=== PATIENT | female | born 2000 | race African-American/Black ===

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

== ENCOUNTER 2019-07-13 17:26 | Emergency (ER) | payer SELFPAY ==
--- NOTE | 2019-07-13 17:34 | PDOC ---
Rapid Medical Evaluation Time Seen by Provider: 07/13/19 17:32 Medical Evaluation: Allergies Allergy/AdvReac Type Severity Reaction Status Date / Time No Known Allergies Allergy Verified 10/28/16 10:31 07/13/19 17:33 pt c/o: lower abd pain radiating to back, + nausea, mild dysuria, hx pcos, denies similar pain from pcos Pt on brief exam: no cva tenderness, vss, no ruq tenderness Pt ordered for: labs urine Pt to proceed to the ED Discharge Disposition - Diagnosis UTI (urinary tract infection), Abdominal pain, Constipation - Discharge Dispostion Disposition: HOME Condition at time of disposition: Stable - Prescriptions Prescriptions: Nitrofurantoin Monohyd/M-Cryst [Macrobid -] 100 mg PO BID #14 capsule Phenazopyridine HCl [Pyridium -] 100 mg PO PC #6 tablet Polyethylene Glycol 3350 [Miralax (For Daily Use) -] 17 gm PO DAILY #1 bottle - Referrals Referrals: Sammi Andersen MD [Primary Care Provider] - - Patient Instructions Printed Discharge Instructions: Increased Dietary Fiber May Improve Constipation Conditions With Pelvic Bjorn, DI for Urinary Tract Infection (UTI), DI for Constipation Additional Instructions: Your CAT scan shows no acute pathology. Your urine shows bacteria in the urine which could be the cause of your pain. Take prescribed medication as prescribed and finish prescribed antibiotics. Increase fluid intake. Follow- up with your primary care - Post Discharge Activity
[2019-07-13 17:35] VITALS: TEMP 99.5; BMI 34.9
[2019-07-13 18:25] LABS: BASO % 0.4 % (0-2.0); EOS % 1.7 % (0-4.5); HEMATOCRIT 42.3 % (32.4-45.2); LYMPH % 26.2 % (8-40); MCH 28.3 pg (25.7-33.7); MCHC 33.2 g/dl (32.0-36.0); MEAN CELL VOLUME 85.3 fl (80-96); MEAN PLT VOLUME 8.3 fl (7.5-11.1); MONO % 17.4 % (3.8-10.2); NEUT % 54.3 % (42.8-82.8); PLATELET COUNT 294 K/MM3 (134-434); RBC 4.96 M/mm3 (3.60-5.2); RDW 14.1 % (11.6-15.6); WHITE BLOOD COUNT 6.8 K/mm3 (4.0-10.0)
[2019-07-13 19:01] LABS: ALBUMIN 3.6 g/dl (3.4-5.0); BILIRUBIN,TOTAL 0.3 mg/dL (0.2-1); BLOOD UREA NITROGEN 8.6 mg/dL (7-18); CALCIUM 8.7 mg/dL (8.5-10.1); CREATININE 0.8 mg/dL (0.55-1.3); POTASSIUM 3.9 mmol/L (3.5-5.1)
[2019-07-13 20:34] LABS: EPI CELLS 0.8 /HPF (0-5/HPF); HYALINE CASTS 6 /lpf (0-8); PH,URINE 5.5 (5.0-8.0); URINE APPEARANCE CLOUDY; URINE BILIRUBIN NEGATIVE (NEGATIVE); URINE COLOR YELLOW; URINE GLUCOSE (UA) NEGATIVE (NEGATIVE); URINE KETONE NEGATIVE (NEGATIVE); URINE LEUK ESTERASE 2+ (NEGATIVE); URINE NITRITE NEGATIVE (NEGATIVE); URINE PROTEIN NEGATIVE (NEGATIVE); URINE RBC 2 /hpf (0-4); URINE UROBILINOGEN 0.2 mg/dL (0.2-1.0); URINE WBC 62 /hpf (0-5)
--- NOTE | 2019-07-13 20:49 | PDOC ---
History of Present Illness - General Chief Complaint: Pain Stated Complaint: LOWER R SIDE ABDOMINAL PAIN Time Seen by Provider: 07/13/19 17:32 History Source: Patient Exam Limitations: Clinical Condition - History of Present Illness Initial Comments: 07/13/19 20:45 Patient with no significant past medical history present with complaint of 2 days history of right flank and lower abdominal pain radiating to the back. Patient also reported mild dysuria but denies burning with urination, urinary frequency. Denies nausea, vomiting, fever, chills, diarrhea. She reported has not had a bowel movement in 2 days. Patient did not take anything for symptoms Is this a multiple visit Asthma Patient?: No Timing/Duration: other (2 days) Past History - Past Medical History Allergies/Adverse Reactions: Allergies Allergy/AdvReac Type Severity Reaction Status Date / Time No Known Allergies Allergy Verified 07/13/19 17:35 Home Medications: Ambulatory Orders Albuterol Sulfate Inhaler - [Ventolin Hfa Inhaler -] 1 - 2 inh PO QID PRN Albuterol 0.083% Nebulizer Audra [Ventolin 0.083% Nebulizer Soln -] 1 neb NEB Q4H #30 vial 10/28/16 Drospirenone/Estradiol [Angeliq 0.5 mg-1 mg Tablet] 1 each PO DAILY 07/13/19 Nitrofurantoin Monohyd/M-Cryst [Macrobid -] 100 mg PO BID #14 capsule 07/13/19 Phenazopyridine HCl [Pyridium -] 100 mg PO PC #6 tablet 07/13/19 Polyethylene Glycol 3350 [Miralax (For Daily Use) -] 17 gm PO DAILY #1 bottle Asthma: Yes COPD: No Other medical history: PCOS - Immunization History Immunization Up to Date: Yes - Psycho Social/Smoking Cessation Hx Smoking History: Never smoked Hx Alcohol Use: No Drug/Substance Use Hx: No Review of Systems - Review of Systems Able to Perform ROS?: Yes Is the patient limited [place] proficient: No Constitutional: No: Chills, Fever, Malaise HEENTM: No: Symptoms Reported, See HPI, Eye Pain, Blurred Vision, Tearing, Recent change in vision, Double Vision, Cataracts, Ear Pain, Ocular Prothesis, Ear Discharge, Nose Pain, Nose Congestion, Tinnitus, Nose Bleeding, Hearing Loss , Throat Pain, Throat Swelling, Mouth Pain, Dental Problems, Difficulty Swallowing, Mouth Swelling, Other Respiratory: No: Symptoms reported, See HPI, Cough, Orthopnea, Shortness of Breath, SOB with Exertion, SOB at Rest, Stridor, Wheezing, Productive cough, Hemoptysis, Other Cardiac (ROS): No: Symptoms Reported, See HPI, Chest Pain, Edema, Irregular Heart Rate, Lightheadedness, Palpitations, Syncope, Chest Tightness, Other ABD/GI: Yes: Symptoms Reported, See HPI, Abdominal cramping (right pelvic/ lower abd pain). No: Nausea, Vomiting : Yes: Symptoms Reported, See HPI, Dysuria, Flank Pain (right flank pain). No : Burning, Discharge, Frequency, Hematuria, Incontinence, Urgency Musculoskeletal: No: Symptoms Reported Integumentary: No: Symptoms Reported Neurological: No: Symptoms reported, Pre-Existing Deficit All Other Systems: Reviewed and Negative *Physical Exam - Vital Signs Last Vital Signs Temp Pulse Resp BP Pulse Ox 99.5 F 90 18 140/67 98 07/13/19 17:30 07/13/19 17:30 07/13/19 17:30 07/13/19 17:30 07/13/19 17:30 - Physical Exam 07/13/19 20:48 GENERAL: Well developed, well nourished. Awake and alert. No acute distress. HEENT: Normocephalic, atraumatic. PERRLA, EOMI. No conjunctival pallor. Sclera are non-icteric. Moist mucous membranes. Oropharynx is clear. NECK: Supple. Full ROM. CARDIOVASCULAR: Regular rate and rhythm. No murmurs, rubs, or gallops. Distal pulses are 2+ and symmetric. PULMONARY: No evidence of respiratory distress. Lungs clear to auscultation bilaterally. No wheezing, rales or rhonchi. ABDOMINAL: Soft. Non-tender. Non-distended. No rebound or guarding. No organomegaly. Normoactive bowel sounds. MUSCULOSKELETAL Normal range of motion at all joints. SKIN: Warm and dry. Normal capillary refill. No rashes. No jaundice. NEUROLOGICAL: Alert, awake, appropriate. Gait is normal without ataxia. PSYCHIATRIC: Cooperative. Good eye contact. Appropriate mood General Appearance: Yes: Nourished, Appropriately Dressed. No: Apparent Distress ED Treatment Course - LABORATORY CBC & Chemistry Diagram: 07/13/19 17:58 07/13/19 17:58 - ADDITIONAL ORDERS Additional order review: Laboratory Results 07/13/19 07/13/19 07/13/19 20:06 20:06 17:58 Sodium 136 Potassium 3.9 Chloride 103 Carbon Dioxide 28 Anion Gap 6 L BUN 8.6 Creatinine 0.8 Est GFR (CKD-EPI)AfAm 123.87 Est GFR (CKD-EPI)NonAf 106.88 Random Glucose 86 Calcium 8.7 Total Bilirubin 0.3 AST 23 ALT 26 Alkaline Phosphatase 78 Total Protein 8.0 Albumin 3.6 Lipase 52 L Urine Color Yellow Urine Appearance Cloudy Urine pH 5.5 D Ur Specific [place] 1.009 L Urine Protein Negative Urine Glucose (UA) Negative Urine Ketones Negative Urine Blood 1+ H Urine Nitrite Negative Urine Bilirubin Negative Urine Urobilinogen 0.2 Ur Leukocyte Esterase 2+ H Urine WBC (Auto) 62 Urine RBC (Auto) 2 Urine Casts (Auto) 6 U Epithel Cells (Auto) 0.8 Urine Bacteria (Auto) 4535.0 Urine HCG, Qual Negative 07/13/19 17:58 RBC 4.96 MCV 85.3 MCHC 33.2 RDW 14.1 MPV 8.3 Neutrophils % 54.3 Lymphocytes % 26.2 D Monocytes % 17.4 H Eosinophils % 1.7 Basophils % 0.4 - RADIOLOGY Radiology Studies Ordered: Category Date Time Status SPIRAL- RENAL-STONE CT [CT] Stat CT Scan 07/13/19 20:13 Ordered Medical Decision Making - Medical Decision Making 07/13/19 20:47 Patient with no significant past medical history present with complaint of 2 days history of right flank and lower abdominal pain radiating to the back. Patient also reported mild dysuria but denies burning with urination, urinary frequency. Denies nausea, vomiting, fever, chills, diarrhea. She reported has not had a bowel movement in 2 days. Patient did not take anything for symptoms Clinical exam unremarkable with no abdominal tenderness. No CVA tenderness. Symptoms likely cystitis versus kidney stone versus less likely pancreatitis. CBC, CMP and lipase lab ordered. UA, urine hCG and urine culture ordered. Spiral CT ordered to rule out kidney stone if negative test 07/13/19 21:17 UA shows leukocytosis with WBCs. Urine test negative. Abdominal CT shows mild hydronephrosis with which could be an indication of passed kidney stone. Patient asymptomatic now and stable for outpatient management for UTI on Macrobid twice daily for a week and Pyridium for dysuria with advised to increase fluid intake and follow-up with PCP Discharge - Discharge Information Problems reviewed: Yes Clinical Impression/Diagnosis: UTI (urinary tract infection) Qualifiers: Urinary tract infection type: acute cystitis Hematuria presence: without hematuria Qualified Code(s): N30.00 - Acute cystitis without hematuria Abdominal pain Qualifiers: Abdominal location: right lower quadrant Qualified Code(s): R10.31 - Right lower quadrant pain Constipation Qualifiers: Constipation type: unspecified constipation type Qualified Code(s): K59.00 - Constipation, unspecified Condition: Stable Disposition: HOME - Admission No - Additional Discharge Information Prescriptions: Nitrofurantoin Monohyd/M-Cryst [Macrobid -] 100 mg PO BID #14 capsule Phenazopyridine HCl [Pyridium -] 100 mg PO PC #6 tablet Polyethylene Glycol 3350 [Miralax (For Daily Use) -] 17 gm PO DAILY #1 bottle - Follow up/Referral Referrals: Sammi Andersen MD [Primary Care Provider] - - Patient Discharge Instructions Patient Printed Discharge Instructions: DI for Urinary Tract Infection (UTI), DI for Constipation, Increased Dietary Fiber May Improve Constipation Conditions With Pelvic Bjorn Additional Instructions: Your CAT scan shows no acute pathology. Your urine shows bacteria in the urine which could be the cause of your pain. Take prescribed medication as prescribed and finish prescribed antibiotics. Increase fluid intake. Follow- up with your primary care - Post Discharge Activity
[2019-07-13 21:55] VITALS: BP 114/68; PULSE 80
--- NOTE | 2019-07-13 22:02 | PDOC ---
*Physical Exam - Vital Signs Last Vital Signs Temp Pulse Resp BP Pulse Ox 99.5 F 80 16 114/68 98 07/13/19 17:30 07/13/19 21:48 07/13/19 21:48 07/13/19 21:48 07/13/19 21:48 ED Treatment Course - LABORATORY CBC & Chemistry Diagram: 07/13/19 17:58 07/13/19 17:58 - ADDITIONAL ORDERS Additional order review: Laboratory Results 07/13/19 07/13/19 07/13/19 20:06 20:06 17:58 Sodium 136 Potassium 3.9 Chloride 103 Carbon Dioxide 28 Anion Gap 6 L BUN 8.6 Creatinine 0.8 Est GFR (CKD-EPI)AfAm 123.87 Est GFR (CKD-EPI)NonAf 106.88 Random Glucose 86 Calcium 8.7 Total Bilirubin 0.3 AST 23 ALT 26 Alkaline Phosphatase 78 Total Protein 8.0 Albumin 3.6 Lipase 52 L Urine Color Yellow Urine Appearance Cloudy Urine pH 5.5 D Ur Specific [place] 1.009 L Urine Protein Negative Urine Glucose (UA) Negative Urine Ketones Negative Urine Blood 1+ H Urine Nitrite Negative Urine Bilirubin Negative Urine Urobilinogen 0.2 Ur Leukocyte Esterase 2+ H Urine WBC (Auto) 62 Urine RBC (Auto) 2 Urine Casts (Auto) 6 U Epithel Cells (Auto) 0.8 Urine Bacteria (Auto) 4535.0 Urine HCG, Qual Negative 07/13/19 17:58 RBC 4.96 MCV 85.3 MCHC 33.2 RDW 14.1 MPV 8.3 Neutrophils % 54.3 Lymphocytes % 26.2 D Monocytes % 17.4 H Eosinophils % 1.7 Basophils % 0.4 Medical Decision Making - Medical Decision Making 07/13/19 21:56 Case reviewed, was available for consultation during patient's clinical course Discharge - Discharge Information Problems reviewed: Yes Clinical Impression/Diagnosis: UTI (urinary tract infection) Qualifiers: Urinary tract infection type: acute cystitis Hematuria presence: without hematuria Qualified Code(s): N30.00 - Acute cystitis without hematuria Abdominal pain Qualifiers: Abdominal location: right lower quadrant Qualified Code(s): R10.31 - Right lower quadrant pain Constipation Qualifiers: Constipation type: unspecified constipation type Qualified Code(s): K59.00 - Constipation, unspecified Condition: Stable Disposition: HOME - Additional Discharge Information Prescriptions: Nitrofurantoin Monohyd/M-Cryst [Macrobid -] 100 mg PO BID #14 capsule Phenazopyridine HCl [Pyridium -] 100 mg PO PC #6 tablet Polyethylene Glycol 3350 [Miralax (For Daily Use) -] 17 gm PO DAILY #1 bottle - Follow up/Referral Referrals: Sammi Andersen MD [Primary Care Provider] - - Patient Discharge Instructions Patient Printed Discharge Instructions: Increased Dietary Fiber May Improve Constipation Conditions With Pelvic Bjorn, DI for Urinary Tract Infection (UTI), DI for Constipation Additional Instructions: Your CAT scan shows no acute pathology. Your urine shows bacteria in the urine which could be the cause of your pain. Take prescribed medication as prescribed and finish prescribed antibiotics. Increase fluid intake. Follow- up with your primary care - Post Discharge Activity
== END 2019-07-13 22:05 | disposition home or self-care (01) ==
LOC: JER 17:26
DX: N30.00 Acute cystitis without hematuria (principal); K59.00 Constipation, unspecified; E28.2 Polycystic ovarian syndrome; Z87.09 Personal history of other diseases of the respiratory system
CPT/HCPCS: 36415; 74176-TC; 80053; 81003; 83690; 84703; 85025; 87086; 87186; 99283-25